=== PATIENT | female | born 1975 | race Caucasian/White ===

== ENCOUNTER 2016-12-03 02:08 | Emergency (ER) | payer MEDICARE, MEDICAID ==
--- NOTE | 2016-12-04 01:23 | ER ---
ADMIT: 12/03/2016 RM/LOC: ER [facility] MR#: [id number] [facility] [address], [place] [id number] WILDA GOMEZ [address] [place] [address] Emergency Room Report SEX: F AGE: 41 : 1975 DATE: 12/03/2016 TIME: 0208 hours. Please refer to my T-sheet for complete H and P. HISTORY OF PRESENT ILLNESS: Briefly, the patient is a 41-year-old, who comes in with neck pain down her right arm. She says it is really bad for the last 2 days. Denies any specific trauma. She has a history of chronic pain and depression. She has not taken anything for it. She is here for evaluation. PHYSICAL EXAMINATION: VITAL SIGNS: Stable. HEENT: She has diffuse tenderness of her neck and it goes down her right arm. EMERGENCY DEPARTMENT COURSE: She wanted to be able to drive home. So, I gave her prednisone 20 p.o. She is ready for discharge. ASSESSMENT: Cervical radiculopathy. PLAN: Prednisone 20 a day for 7 days total. [place] 5, they gave her a script for 15. Flexeril 10, they gave her a script for 10. Wanted to follow up with Rebekah Black PA-C. Return if worse. Earnest Ignacio MD/ karly JOB #: [id number] CC: Earnest Ignacio MD, Attending Physician Rebekah Black PA-C, Family Physician
== END 2016-12-03 03:20 | disposition home or self-care (01) ==
LOC: ER 02:08
DX: M54.12 Radiculopathy, cervical region (principal); F17.210 Nicotine dependence, cigarettes, uncomplicated; F32.9 Major depressive disorder, single episode, unspecified; E78.5 Hyperlipidemia, unspecified; E03.9 Hypothyroidism, unspecified; Z90.49 Acquired absence of other specified parts of digestive tract; Z79.899 Other long term (current) drug therapy; Z88.1 Allergy status to other antibiotic agents